=== PATIENT | female | born 2000 | race Caucasian/White ===

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

== ENCOUNTER 2018-06-12 07:25 | Emergency (ER) | payer OTHER ==
[~2018-06-12] VITALS: Ht 165.1 cm; Wt 125.0 kg
[~2018-06-12 07:25] MED LIST changes: +FLONASE NASAL50 MCG
[2018-06-12 08:14] LABS: URINE BILIRUBIN - DIPSTICK NEGATIVE (NEGATIVE); URINE BLOOD DIPSTICK SMALL (NEGATIVE); URINE COLOR YELLOW; URINE GLUCOSE - DIPSTICK NEGATIVE (NEGATIVE); URINE KETONE NEGATIVE (NEGATIVE); URINE LEUK ESTERASE TRACE (NEGATIVE); URINE NITRITE - DIPSTICK NEGATIVE (Negative); URINE PROTEIN - DIPSTICK NEGATIVE (NEG-TRACE); URINE UROBILINOGEN - DIPSTICK 0.2 E.U./dL (0.2)
[2018-06-12 08:16] LABS: HEMATOCRIT 37.7 % (37.0-47.0); HEMOGLOBIN 11.8 g/dl (12.0-16.0); IMMATURE GRANULOCYTES 0.3 % (0.0-5.0); MEAN CELL VOLUME 80.4 fL CALC (80.0-100.0); MEAN CORPUSCULAR HGB 25.2 pG CALC (26.0-32.0); MEAN CORPUSCULAR HGB CONC 31.3 g/L CALC (32.0-36.0); NEUT# 13.25 thou/uL (2.00-7.15); RED BLOOD COUNT 4.69 mill/uL (4.20-5.60); RED CELL DISTRI WIDTH 14.6 % (11.5-15.5)
[2018-06-12 08:23] LABS: URINE BACTERIA MODERATE hpf; URINE RBC 0-2 RBC/hpf (0-5); URINE SQUAMOUS EPITHELIAL CELL MODERATE EPI/hpf (0-FEW)
[2018-06-12 08:34] LABS: ALBUMIN 3.8 g/dL (3.2-5.0); ALKALINE PHOSPHATASE 94 u/l (38-126); ANION GAP 14 (6-22 (CALC)); BILIRUBIN, TOTAL 0.4 mg/dL (0.0-1.4); BUN 14 mg/dL (7-17); BUN/CREATININE RATIO 21 (12-20 (CALC)); CARBON DIOXIDE 24 mmol/l (22-30); CHLORIDE 104 mmol/l (95-108); CREATININE 0.6 mg/dL (0.5-1.0); GFR > 60 ML/MIN (>=60 (CALC)); GFR FOR AFR.AMER. > 60 ML/MIN (>=60 (CALC)); POTASSIUM 4.4 mmol/l (3.5-5.1); SGOT/AST 17 u/l (14-36); SODIUM 138 mmol/l (137-146)
[2018-06-12] MEDS ORDERED: ONDANSETRON4 MG PO (08:46)
[2018-06-12] MEDS ORDERED: BENTYL10 MG PO (08:46)
[2018-06-12 09:03] VITALS: BP 135/82
== END 2018-06-12 09:03 | disposition home or self-care (01) | DRG 392 ==
LOC: ED 07:25
PROVIDERS: Emergency Medicine
DX: K52.9 Noninfective gastroenteritis and colitis, unspecified (principal); R19.7 Diarrhea, unspecified; R10.9 Unspecified abdominal pain; R11.2 Nausea with vomiting, unspecified

== ENCOUNTER 2018-11-29 12:04 | Emergency (ER) | payer OTHER ==
[~2018-11-29] VITALS: Ht 165.1 cm; Wt 124.6 kg
[~2018-11-29 12:04] MED LIST changes: +BENTYL10 MG PO
[2018-11-29] MEDS ORDERED: AUGMENTIN875TAB PO (12:41)
[2018-11-29 12:47] VITALS: BP 129/90
== END 2018-11-29 12:54 | disposition home or self-care (01) ==
LOC: ED 12:04
DX: J02.9 Acute pharyngitis, unspecified (principal); J32.9 Chronic sinusitis, unspecified; R05 Cough; R09.81 Nasal congestion

== ENCOUNTER 2020-05-21 18:08 | Emergency (ER) | payer SELFPAY ==
[~2020-05-21] VITALS: Ht 165.1 cm; Wt 120.0 kg
[2020-05-21 19:30] VITALS: BP 118/72
== END 2020-05-21 19:30 | disposition home or self-care (01) | DRG 951 ==
LOC: ED 18:08
DX: Z20.828 Contact with and (suspected) exposure to other viral communicable diseases (principal)

== ENCOUNTER 2021-03-24 11:48 | Emergency (ER) | payer SELFPAY ==
[~2021-03-24] VITALS: Ht 165.1 cm; Wt 109.1 kg
[2021-03-24 12:26] LABS: URINE BILIRUBIN - DIPSTICK NEGATIVE (NEGATIVE); URINE BLOOD DIPSTICK LARGE (NEGATIVE); URINE COLOR RED; URINE GLUCOSE - DIPSTICK NEGATIVE (NEGATIVE); URINE KETONE NEGATIVE (NEGATIVE); URINE PH 7.5 (4.5-8.0); URINE PROTEIN - DIPSTICK 100 mg/dL (NEG-TRACE)
[2021-03-24 12:27] LABS: URINE LEUK ESTERASE SMALL (NEGATIVE); URINE NITRITE - DIPSTICK POSITIVE (Negative)
[2021-03-24 12:29] LABS: HEMATOCRIT 39.3 % (37.0-47.0); HEMOGLOBIN 12.3 g/dl (12.0-16.0); IMMATURE GRANULOCYTES 0.4 % (0.0-5.0); MEAN CORPUSCULAR HGB 27.3 pG CALC (26.0-32.0); MEAN CORPUSCULAR HGB CONC 31.3 g/dL CAL (32.0-36.0); NEUT# 5.32 thou/uL (2.00-7.15); RED BLOOD COUNT 4.51 mill/uL (4.20-5.60); RED CELL DISTRI WIDTH 15.1 % (11.5-15.5)
[2021-03-24 12:36] LABS: URINE RBC TNTC RBC/hpf (0-5); URINE SQUAMOUS EPITHELIAL CELL FEW EPI/hpf (0-FEW)
[2021-03-24 12:39] LABS: ALKALINE PHOSPHATASE 79 u/l (38-126); ANION GAP 8 (6-22 (CALC)); BUN 10 mg/dL (7-17); BUN/CREATININE RATIO 14 (12-20 (CALC)); CARBON DIOXIDE 27 mmol/l (22-30); CHLORIDE 107 mmol/l (95-108); CREATININE 0.7 mg/dL (0.5-1.0); GFR > 60 ML/MIN (>=60 (CALC)); GFR FOR AFR.AMER. > 60 ML/MIN (>=60 (CALC)); LIPASE 17 u/l (23-300); MEAN CELL VOLUME 87.1 fL CALC (80.0-100.0); SGOT/AST 22 u/l (14-36); SODIUM 138 mmol/l (137-146); TOTAL PROTEIN 7.7 g/dL (6.3-8.2)
[2021-03-24 12:40] LABS: BILIRUBIN, TOTAL 0.6 mg/dL (0.0-1.4)
[2021-03-24] MEDS ORDERED: OMNI-PAC300 MG PO (13:42)
[2021-03-24] MEDS ORDERED: ONDANSETRON4 MG PO (13:42)
[2021-03-24 13:53] VITALS: BP 114/66
== END 2021-03-24 14:05 | disposition home or self-care (01) | DRG 392 ==
LOC: ED 11:48
PROVIDERS: Family Medicine
DX: K52.9 Noninfective gastroenteritis and colitis, unspecified (principal); N39.0 Urinary tract infection, site not specified; Z20.822 Contact with and (suspected) exposure to COVID-19

== ENCOUNTER 2021-04-30 19:02 | Emergency (ER) | payer SELFPAY ==
[~2021-04-30] VITALS: Ht 165.1 cm; Wt 114.0 kg
[~2021-04-30 19:02] MED LIST changes: +OMNI-PAC300 MG PO
[2021-04-30] MEDS ORDERED: TESSALON PERLE100 MG PO (20:13)
[2021-04-30] MEDS ORDERED: CIPROFLOXACN500 MG PO (20:13)
[2021-04-30] MEDS ORDERED: PREDNISONE50 MG PO (20:13)
[2021-04-30 20:40] VITALS: BP 160/82
== END 2021-04-30 20:40 | disposition home or self-care (01) | DRG 153 ==
LOC: ED 19:02
DX: J32.9 Chronic sinusitis, unspecified (principal); Z20.822 Contact with and (suspected) exposure to COVID-19

== ENCOUNTER 2022-07-19 07:29 | Emergency (ER) | payer BC ==
[~2022-07-19] VITALS: Ht 165.1 cm; Wt 113.4 kg
[~2022-07-19 07:29] MED LIST changes: +CIPROFLOXACN500 MG PO; +PREDNISONE50 MG PO; +TESSALON PERLE100 MG PO
[2022-07-19 07:34] VITALS: BP 126/88
[2022-07-19 07:46] VITALS: BP 110/74
[2022-07-19 08:19] LABS: HCG SERUM/URINE (NEG/POS) NEGATIVE (NEGATIVE)
[2022-07-19 08:28] LABS: ALBUMIN 4.3 g/dL (3.2-5.0); ALKALINE PHOSPHATASE 84 u/l (38-126); ANION GAP 11 (6-22 (CALC)); BUN 11 mg/dL (7-17); BUN/CREATININE RATIO 14 (12-20 (CALC)); CARBON DIOXIDE 26 mmol/l (22-30); CHLORIDE 107 mmol/l (95-108); CREATININE 0.8 mg/dL (0.5-1.0); GFR FOR AFR.AMER. > 60 ML/MIN (>=60 (CALC)); GFR OTHER RACES > 60 ML/MIN (>=60 (CALC)); POTASSIUM 4.5 mmol/l (3.5-5.1); SGOT/AST 27 u/l (14-36); SODIUM 139 mmol/l (137-146); TOTAL PROTEIN 7.5 g/dL (6.3-8.2)
[2022-07-19 08:33] LABS: BILIRUBIN, TOTAL 0.3 mg/dL (0.0-1.4)
[2022-07-19 08:37] LABS: BASO% 1.8 % (0-3); EOS% 1.2 % (0-8); HEMATOCRIT 43.3 % (37.0-47.0); HEMOGLOBIN 14.1 g/dl (12.0-16.0); IMMATURE GRANULOCYTES 0.2 % (0.0-5.0); LYMPH% 17.4 % (15-41); MEAN CELL VOLUME 87.7 fL CALC (80.0-100.0); MEAN CORPUSCULAR HGB 28.5 pG CALC (26.0-32.0); MEAN CORPUSCULAR HGB CONC 32.6 g/dL CAL (32.0-36.0); MONO% 9.4 % (2-13); NEUT# 4.23 thou/uL (2.00-7.15); RED BLOOD COUNT 4.94 mill/uL (4.20-5.60); RED CELL DISTRI WIDTH 13.2 % (11.5-15.5)
[2022-07-19] MEDS ORDERED: ZOFRAN4 MG/TAB PO (08:42)
[2022-07-19] MEDS ORDERED: TAM75CAP PO (08:42)
[2022-07-19 09:04] VITALS: BP 110/74
== END 2022-07-19 09:05 | disposition home or self-care (01) | DRG 195 ==
LOC: ED 07:29
PROVIDERS: Family Medicine
DX: J10.1 Influenza due to other identified influenza virus with other respiratory manifestations (principal)

== ENCOUNTER 2023-02-20 18:39 | Emergency (ER) | payer BC ==
[~2023-02-20] VITALS: Ht 165.1 cm; Wt 113.0 kg
[2023-02-20 21:24] VITALS: BP 136/74
== END 2023-02-20 21:38 | disposition home or self-care (01) | DRG 153 ==
LOC: ED 18:39
DX: H65.02 Acute serous otitis media, left ear (principal); J06.9 Acute upper respiratory infection, unspecified; Z20.822 Contact with and (suspected) exposure to COVID-19

== ENCOUNTER 2023-12-16 06:22 | Emergency (ER) | payer MEDICAID ==
[~2023-12-16] VITALS: Ht 162.6 cm; Wt 113.0 kg
[2023-12-16] MEDS ORDERED: ONDANSETRON 4 MG/TAB ODT PO ONE (06:45)
[2023-12-16] MEDS ORDERED: PRENATA3 PO (07:25)
[2023-12-16] MEDS ORDERED: VITAMIN D-32000 UNI1 (07:26)
[2023-12-16 08:04] VITALS: BP 97/64
== END 2023-12-16 08:05 | disposition home or self-care (01) ==
LOC: ED 06:22
DX: J06.9 Acute upper respiratory infection, unspecified (principal); Z20.822 Contact with and (suspected) exposure to COVID-19

== ENCOUNTER 2024-08-16 18:00 | Emergency (ER) | payer MEDICAID ==
[~2024-08-16] VITALS: Ht 162.6 cm; Wt 113.3 kg
[~2024-08-16 18:00] MED LIST changes: +PRENATA3 PO; +VITAMIN D-32000 UNI1
[2024-08-16 18:46] VITALS: BP 137/78
[2024-08-16] MEDS ORDERED: ONDANSETRON HCl 4 MG/2 ML SDV IV ONE (18:50)
[2024-08-16] MEDS ORDERED: SODIUM CHLORIDE 0.9% 1,000 ML IV ONE (18:50)
[2024-08-16] MEDS ORDERED: HYDROmorphone HCL 2 MG/AMP IV STA (19:00)
[2024-08-16] MEDS ORDERED: ONDANSETRON HCl 4 MG/2 ML SDV IV STA (19:00)
[2024-08-16 19:01] VITALS: BP 126/77
[2024-08-16 19:25] LABS: URINE BILIRUBIN - DIPSTICK Negative (NEGATIVE); URINE BLOOD DIPSTICK Large (NEGATIVE); URINE COLOR Yellow; URINE GLUCOSE - DIPSTICK Negative (NEGATIVE); URINE KETONE Negative (NEGATIVE); URINE LEUK ESTERASE Small (NEGATIVE); URINE NITRITE - DIPSTICK Negative (Negative); URINE PROTEIN - DIPSTICK Negative (NEG-TRACE); URINE SPECIFIC GRAVITY 1.025; URINE UROBILINOGEN - DIPSTICK 0.2 E.U./dL (0.2)
[2024-08-16 19:25] LABS: BASO% 0.2 % (0-3); EOS% 0.3 % (0-8); HEMOGLOBIN 12.5 g/dl (12.0-16.0); IMMATURE GRANULOCYTES 0.2 % (0.0-5.0); LYMPH% 9.7 % (15-41); MEAN CELL VOLUME 86.3 fL CALC (80.0-100.0); MEAN CORPUSCULAR HGB 26.8 pG CALC (26.0-32.0); MEAN CORPUSCULAR HGB CONC 31.1 g/dL CAL (32.0-36.0); NEUT# 9.74 thou/uL (2.00-7.15); NEUT% 85.6 % (42-76); RED BLOOD COUNT 4.66 mill/uL (4.20-5.60); RED CELL DISTRI WIDTH 14.4 % (11.5-15.5)
[2024-08-16 19:27] LABS: HEMATOCRIT 40.2 % (37.0-47.0)
[2024-08-16 19:33] LABS: URINE BACTERIA FEW hpf; URINE MUCUS RARE hpf (NONE-FEW); URINE SQUAMOUS EPITHELIAL CELL MANY EPI/hpf (0-FEW)
[2024-08-16 19:40] LABS: ALBUMIN 3.7 g/dL (3.2-5.0); CREATININE 0.7 mg/dL (0.5-1.0); POTASSIUM 4.1 mmol/l (3.5-5.1); TOTAL PROTEIN 6.9 g/dL (6.3-8.2)
[2024-08-16 19:41] LABS: BILIRUBIN, TOTAL 0.4 mg/dL (0.02-1.3)
[2024-08-16] MEDS ORDERED: FAMOTIDINE 10MG/ML 2ML SDV IV ONE (20:20)
[2024-08-16] MEDS ORDERED: Pantoprazole Sodium 40 MG VIAL (Protonix) IV ONE (20:20)
[2024-08-16] MEDS ORDERED: ZOFRAN4 MG/TAB PO (20:23)
[2024-08-16] MEDS ORDERED: KEFLEX500 MG PO (20:23)
[2024-08-16] MEDS ORDERED: DICYCLOMINE HYD10 MG PO (20:23)
[2024-08-16] MEDS ORDERED: PEPCID20 MG PO (20:23)
[2024-08-16 21:49] VITALS: BP 126/77
[2024-08-19] MEDS ORDERED: BACTRIM DS1 TAB PO (12:39)
== END 2024-08-16 21:49 | disposition home or self-care (01) ==
LOC: ED 18:00
PROVIDERS: Family Medicine
DX: N39.0 Urinary tract infection, site not specified (principal); K52.9 Noninfective gastroenteritis and colitis, unspecified
CPT/HCPCS: J0696; J1171; J2405; J2470; Q9967